=== PATIENT | female | born 1965 | race Caucasian/White ===

== ENCOUNTER → 2019-01-03 | Outpatient (CLI) | payer BC, OTHER ==
--- NOTE | 2019-01-04 08:54 | US ---
EXAMINATION TYPE: US abdomen complete DATE OF EXAM: 01/03/2019 COMPARISON: NONE CLINICAL HISTORY: R10.9 Abdominal Pain,R10.11 Rt upper quadrant pain. Pt states ABD pain EXAM MEASUREMENTS: Liver Length: 17.3 cm Gallbladder Wall: 0.2 cm CBD: 0.3 cm Spleen: 12.0 cm Right Kidney: 10.6 x 3.7 x 3.7 cm Left Kidney: 11.7 x 5.8 x 4.7 cm Pancreas: wnl, tail obscured by overlying bowel gas Liver: Limited views show no abnormality Gallbladder: wnl Evidence for sonographic Santana's sign: No CBD: wnl Spleen: wnl Right Kidney: wnl Left Kidney: wnl Upper IVC: wnl Abd Aorta: wnl The visualized liver is homogenous. The intrahepatic portion of the IVC and proximal abdominal aorta are within normal limits. There is no evidence of cholelithiasis. Common bile duct is unremarkable . The visualized portions of the pancreas are homogenous. The spleen is unremarkable. Kidneys are symmetric and free of hydronephrosis. No renal lesions are seen. IMPRESSION: No suspicious findings seen on images saved to account for patient's symptoms of right up per quadrant and diffuse abdominal pain.
== END | disposition home or self-care (01) ==
LOC: RADUSWWP 09:03
PROVIDERS: ATTEND Family Medicine
DX: K57.30 Diverticulosis of large intestine without perforation or abscess without bleeding (principal); R10.11 Right upper quadrant pain
CPT/HCPCS: 76700

== ENCOUNTER 2021-09-11 22:03 | Emergency (ER) | payer BC ==
[2021-09-11] MEDS ORDERED: SODIUM CHLORIDE 0.9% 1,000 ML IV ONE (23:37)
[2021-09-12] MEDS ORDERED: BAMLANIVIMAB (EUA) 700 MG, ETESEVIMAB (EUA) 1,400 MG in SODIUM CHLORIDE 0.9% 50 ML IVPB ONE (00:15)
[2021-09-12] MEDS ORDERED: SODIUM CHLORIDE 0.9% 50 ML IVPB ONE (00:15)
[2021-09-12 00:25] LABS: Appearance,Urine Clear (Clear); Bilirubin,Urine Negative (Negative); Blood,Urine Negative (Negative); Color,Urine Yellow; Glucose,Urine (UA) Negative (Negative); Ketones,Urine Negative (Negative); Leukocyte Esterase,Urine Negative (Negative); Nitrite,Urine Negative (Negative); Protein,Urine Negative (Negative); Specific Gravity,Urine 1.029 (1.001-1.035); Urobilinogen,Urine <2.0 mg/dL (<2.0)
[2021-09-12 00:29] VITALS: RESP 18
--- NOTE | 2021-09-12 01:47 | ED ---
Recheck HPI - General Chief Complaint: Recheck/Abnormal Lab/Rx Stated Complaint: COVID+,Wants Antibodies Time Seen by Provider: 09/11/21 22:42 Source: patient Mode of arrival: ambulatory - History of Present Illness Initial Comments: 56 year-old female patient presents to the emergency department requesting antibodies after testing positive for COVID. States that she started having symptoms about 5 days ago. She has cough, congestion, shortness of breath, fever, and bodyaches. States she did have positive rapid and PCR test for COVID. She was seen at [facility], they gave her a dose of steroids. Her physician instructed her to return to the hospital to receive monoclonal antibodies. She denies any vomiting or diarrhea. States that she did Tylenol cold and flu. Patient denies any recent rash, abdominal pain, constipation, back pain, numbness, tingling, dizziness, weakness, hematuria, dysuria, urinary urgency, urinary frequency, headache, visual changes, or any other complaints. - Related Data Home Medications Medication Instructions Recorded Confirmed Montelukast [Singulair] 10 mg PO HS 05/20/15 12/12/17 Venlafaxine HCl [Effexor XR] 75 mg PO Q2D 05/20/15 12/12/17 Ascorbic Acid [Vitamin C] 500 mg PO DAILY 12/12/17 12/12/17 Ibuprofen 800 mg PO Q6H PRN 12/12/17 12/12/17 lisinopriL [Zestril] 10 mg PO DAILY 12/12/17 12/12/17 Previous Rx's Medication Instructions Recorded Ibuprofen 800 mg PO Q6HR PRN #20 tablet 12/12/17 Orphenadrine [Norflex] 100 mg PO Q12H #7 tablet.er 12/12/17 predniSONE [Deltasone] 20 mg PO BID #10 tab 12/12/17 Allergies Allergy/AdvReac Type Severity Reaction Status Date / Time No Known Allergies Allergy Verified 12/12/17 07:19 Review of Systems ROS Statement: Those systems with pertinent positive or pertinent negative responses have been documented in the HPI. ROS Other: All systems not noted in ROS Statement are negative. Past Medical History Past Medical History: Asthma, Hypertension Additional Past Medical History / Comment(s): irregular menses, chronic neck pain History of Any Multi-Drug Resistant Organisms: None Reported Past Surgical History: Appendectomy, Orthopedic Surgery Additional Past Surgical History / Comment(s): laparoscopic cyst removed from ovary, nestor knee arthroscopies, breast reduction, breast biopsy Additional Past Anesthesia/Blood Transfusion Reaction / Comment(s): "has a hard time waking up with anesthesia" Past Psychological History: Anxiety Smoking Status: Never smoker Past Alcohol Use History: Occasional Past Drug Use History: None Reported - Past Family History Father Family Medical History: Cancer Additional Family Medical History / Comment(s): lung ca Mother Family Medical History: Hypertension Additional Family Medical History / Comment(s): cardiomyopathy General Exam General appearance: alert, in no apparent distress, other (This is a well- developed, well-nourished adult female patient in no acute distress.) Eye exam: Present: normal appearance, PERRL, EOMI. Absent: scleral icterus, conjunctival injection, periorbital swelling ENT exam: Present: normal exam, normal oropharynx, mucous membranes moist Respiratory exam: Present: normal lung sounds bilaterally. Absent: respiratory distress, wheezes, rales, rhonchi, stridor Cardiovascular Exam: Present: regular rate, normal rhythm, normal heart sounds. Absent: systolic murmur, diastolic murmur, rubs, gallop, clicks GI/Abdominal exam: Present: soft, normal bowel sounds. Absent: distended, tenderness, guarding, rebound, rigid Neurological exam: Present: alert, oriented X3, CN II-XII intact Psychiatric exam: Present: normal affect, normal mood Skin exam: Present: warm, dry, intact, normal color. Absent: rash Course Vital Signs 09/11/21 09/12/21 09/12/21 22:30 00:26 00:55 Temperature 98.2 F 97.7 F 97.4 F L Pulse Rate 81 74 53 L Respiratory 22 18 18 Rate Blood Pressure 154/92 148/90 148/91 O2 Sat by Pulse 95 96 96 Oximetry 09/12/21 02:08 Temperature 98.1 F Pulse Rate 67 Respiratory 18 Rate Blood Pressure 148/83 O2 Sat by Pulse 94 L Oximetry Medical Decision Making - Medical Decision Making 56-year-old female patient recently tested positive for COVID-19, presenting to the emergency department today requesting antibody infusion. Physical examination did reveal clear equal lung sounds. Vital signs are normal except for mildly low pulse oximetry of 95%. She did meet criteria to receive monoclonal antibodies. The infusion was discussed she did agree to receive it. She had the infusion with no complications. She'll be discharged. The primary care physician for recheck in 1-2 days. Return parameters were discussed in detail. She verbalizes understanding and agrees with this plan. My attending is Dr. Garza. - Lab Data Lab Results 09/12/21 Range/Units 00:04 Urine Color Yellow Urine Appearance Clear (Clear) Urine pH 6.0 (5.0-8.0) Ur Specific [place] 1.029 (1.001-1.035) Urine Protein Negative (Negative) Urine Glucose (UA) Negative (Negative) Urine Ketones Negative (Negative) Urine Blood Negative (Negative) Urine Nitrite Negative (Negative) Urine Bilirubin Negative (Negative) Urine Urobilinogen <2.0 (<2.0) mg/dL Ur Leukocyte Esterase Negative (Negative) Disposition Clinical Impression: COVID-19 Disposition: HOME SELF-CARE Condition: Good Instructions (If sedation given, give patient instructions): Coronavirus Disease 2019 (COVID-19) Additional Instructions: Increase fluids. Follow-up through primary care physician for recheck in 1-2 days. Return for any new, worsening, or concerning symptoms. Is patient prescribed a controlled substance at d/c from ED?: No Referrals: Rama Barr MD [Primary Care Provider] - 1-2 days Time of Disposition: 01:59
[2021-09-12 02:10] VITALS: BP 148/83; PULSE 67; TEMP 98.1
== END 2021-09-12 02:08 | disposition home or self-care (01) ==
LOC: EC 22:03
DX: U07.1 COVID-19 (principal); I10 Essential (primary) hypertension; J45.909 Unspecified asthma, uncomplicated; F41.9 Anxiety disorder, unspecified; Z79.52 Long term (current) use of systemic steroids; Z79.1 Long term (current) use of non-steroidal anti-inflammatories (NSAID); Z79.899 Other long term (current) drug therapy; Z90.721 Acquired absence of ovaries, unilateral; Z90.49 Acquired absence of other specified parts of digestive tract; Z82.49 Family history of ischemic heart disease and other diseases of the circulatory system; Z80.1 Family history of malignant neoplasm of trachea, bronchus and lung
CPT/HCPCS: 99285 ×2; 96365 ×2; 96361 ×3; 81003; J3490

== ENCOUNTER → 2022-02-26 | Outpatient (CLI) | payer BC ==
--- NOTE | 2022-02-26 11:28 | US ---
EXAMINATION TYPE: US venous doppler duplex LE LT DATE OF EXAM: 02/26/2022 10:27 AM COMPARISON: NONE CLINICAL HISTORY: I80.9 Phlebitis and thrombophlebitis. Left leg swelling. No hx DVT. Not on blood thinners. SIDE PERFORMED: Left TECHNIQUE: The lower extremity deep venous system is examined utilizing real time linear array sonog bakari with graded compression, doppler sonography and color-flow sonography. VESSELS IMAGED: Common Femoral Vein Deep Femoral Vein Greater Saphenous Vein * Femoral Vein Popliteal Vein Small Saphenous Vein * Proximal Calf Veins (* superficial vessels) Left Leg: Negative for DVT IMPRESSION: 1. Left lower extremity ultrasound negative for deep venous thrombosis.
== END | disposition home or self-care (01) ==
LOC: RADUSWWP 10:06
PROVIDERS: ATTEND Orthopaedic Surgery
DX: I80.9 Phlebitis and thrombophlebitis of unspecified site (principal); M79.89 Other specified soft tissue disorders

== ENCOUNTER → 2022-04-09 | Outpatient (CLI) | payer BC ==
--- NOTE | 2022-04-12 11:35 | MM ---
Reason for Exam: Screening (asymptomatic). Last mammogram was performed 1 year(s) and 5 month(s) ago. Patient History: Menarche at age 13. First Full-Term at age 27. Postmenopausal. Hormonal Contraceptives for 8 years from age 17 until age 25. 11/07/2000, Bilateral Reduction. Risk Values: Catherine 5 year model risk: 1.4%. NCI Lifetime model risk: 8.7%. Prior Study Comparison: 07/23/2005 Left Diagnostic Mammogram, [facility]. 01/20/2006 Left Diagnostic Mammogram, [facility]. 08/23/2006 Bilateral Diagnostic Mammogram, [facility]. Tissue Density: There are scattered fibroglandular densities. Findings: Analyzed By CAD. There is no suspicious group of microcalcifications or new suspicious mass in either breast. Chronic nodularity right breast stable. Benign calcifications noted. Benign lymph nodes left axilla. Nodule in the outer margin the right breast may be slightly increased in size relative to prior exam. Overall Assessment: Incomplete: need additional imaging evaluation, BI-RAD 0 Management: Diagnostic Mammogram of the right breast. A clinical breast exam by your physician is recommended on an annual basis and results should be correlated with mammographic findings. Electronically signed and approved by: Chinedu Giron M.D. Radiologis
== END | disposition home or self-care (01) ==
LOC: MERGE 16:20 → RADMAMWWP 16:21
PROVIDERS: ATTEND Family Medicine
DX: Z12.31 Encounter for screening mammogram for malignant neoplasm of breast (principal)
CPT/HCPCS: 77067

== ENCOUNTER → 2022-04-15 | Outpatient (CLI) | payer BC ==
--- NOTE | 2022-04-15 08:31 | MM ---
Reason for Exam: Additional evaluation requested from abnormal screening. Last screening mammogram was performed less than 1 month ago. Patient History: Menarche at age 13. First Full-Term at age 27. Postmenopausal. Hormonal Contraceptives for 8 years from age 17 until age 25. 11/07/2000, Bilateral Reduction. Risk Values: Catherine 5 year model risk: 1.4%. NCI Lifetime model risk: 8.7%. Prior Study Comparison: 05/24/2019 Bilateral MG screening mammo w CAD - 2, [facility]. 12/01/2020 Bilateral MG 3D screening mammo w/cad, [facility]. 04/09/2022 Bilateral MG screening mammo w CAD, [facility]. Tissue Density: Right: There are scattered fibroglandular densities. Findings: Analyzed By CAD. Mammogram There is a persistent small rounded density which is circumscribed in the outer aspect of right breast. Additional evaluation with ultrasound was performed. At the 7:00 position there appears to be a tiny cyst by ultrasound may correspond. Short-term follow-up is recommended. Technique: Method: Targeted. Findings: There is a 0.4 x 0.3 x 0.2 cm hypoechoic area which may have posterior wall enhancement. This appears to be a cyst but may be too small to classify as a completely simple cyst. Precautionary follow up in 6 months is recommended. Additionally, there is a tiny cyst which may be present at the 10:00 position. Follow-up ultrasound right breast in 6 months is recommended. Overall Assessment: Probably benign, BI-RAD 3 Assessment: MG work up mamm w CAD RT - Right: Probably benign, BI-RAD 3. US breast workup limited RT - Right: Probably benign, BI-RAD 3. Management: Diagnostic Mammogram of the right breast in 6 months. Diagnostic Breast Ultrasound of the right breast in 6 months. A clinical breast exam by your physician is recommended on an annual basis and results should be correlated with mammographic findings. Results were given to the patient verbally at the time of exam. Patient should continue monthly self breast exam. Negative ultrasound or negative mammogram should not preclude biopsy of suspicious palpable abnormalities. Electronically signed and approved by: Tyrel Bennett D.O. Radiologis
== END | disposition home or self-care (01) ==
LOC: RADMAMWWP 07:01
PROVIDERS: ATTEND Family Medicine
DX: R92.8 Other abnormal and inconclusive findings on diagnostic imaging of breast (principal)
CPT/HCPCS: 77065

== ENCOUNTER 2022-09-14 13:38 | Emergency (ER) | payer BC, OTHER ==
[2022-09-14 14:00] VITALS: TEMP 98
[2022-09-14] MEDS ORDERED: SODIUM CHLORIDE 0.9% 1,000 ML IV STA (17:03)
[2022-09-14] MEDS ORDERED: ONDANSETRON 4 MG/2 ML VIAL IVP STA (17:03)
[2022-09-14] MEDS ORDERED: ACETAMINOPHEN TAB 500 MG TAB PO STA (17:04)
[2022-09-14] MEDS ORDERED: METOCLOPRAMIDE 5 MG/ML 2 ML VIAL IVP STA (17:04)
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
--- NOTE | 2022-09-14 18:08 | XR ---
EXAMINATION TYPE: XR chest 2V DATE OF EXAM: 09/14/2022 COMPARISON: 09/05/2015 HISTORY: Chest pain TECHNIQUE: 2 view FINDINGS: Heart and mediastinum are normal. Lungs are clear. Diaphragm is normal. Bony thorax is inta ct. IMPRESSION: Normal chest. There is clearing of some pneumonia in the left lung compared to old exam
[2022-09-14 18:09] LABS: Basophils % (A) 1 %; Eosinophils # (A) 0.1 k/uL (0-0.7); Eosinophils % (A) 1 %; HCT 38.4 % (34.0-46.0); HGB 13.4 gm/dL (11.4-16.0); Lymphocytes # (A) 1.8 k/uL (1.0-4.8); Lymphocytes % (A) 28 %; MCH 30.4 pg (25.0-35.0); MCHC 34.8 g/dL (31.0-37.0); MCV 87.4 fL (80.0-100.0); Mean Platelet Volume 8.8; Monocytes # (A) 0.3 k/uL (0-1.0); Monocytes % (A) 5 %; Neutrophils # (A) 4.4 k/uL (1.3-7.7); Neutrophils % (A) 65 %; Platelet Count 202 k/uL (150-450); RDW 13.2 % (11.5-15.5); WBC 6.7 k/uL (3.8-10.6)
[2022-09-14 18:20] LABS: INR 0.9 (<1.2); Prothrombin Time 10.1 sec (9.0-12.0)
[2022-09-14 18:26] LABS: ALT 37 U/L (4-34); AST 22 U/L (14-36); African American GFR (CKD) >90 (>60 ml/min/1.73 sqM); Albumin 4.7 g/dL (3.5-5.0); Alkaline Phosphatase 79 U/L (38-126); Anion Gap 10 mmol/L; Blood Urea Nitrogen 17 mg/dL (7-17); Calcium 9.5 mg/dL (8.4-10.2); Carbon Dioxide 24 mmol/L (22-30); Chloride 106 mmol/L (98-107); Glucose 108 mg/dL (74-99); Magnesium 2.1 mg/dL (1.6-2.3); Non-African American GFR(CKD) >90 (>60 ml/min/1.73 sqM); Potassium 3.7 mmol/L (3.5-5.1); Sodium 140 mmol/L (137-145); Total Bilirubin 0.8 mg/dL (0.2-1.3); Total Protein 6.7 g/dL (6.3-8.2)
[2022-09-14 18:44] VITALS: BP 134/85; PULSE 54; RESP 15
== END 2022-09-14 19:41 | disposition home or self-care (01) ==
LOC: EC 13:38
DX: S06.0X0A Concussion without loss of consciousness, initial encounter (principal); R45.83 Excessive crying of child, adolescent or adult; R07.89 Other chest pain; H93.13 Tinnitus, bilateral; R51.9 Headache, unspecified; R11.0 Nausea; J45.909 Unspecified asthma, uncomplicated; I10 Essential (primary) hypertension; F41.9 Anxiety disorder, unspecified; Z79.899 Other long term (current) drug therapy; W50.1XXA Accidental kick by another person, initial encounter
CPT/HCPCS: 36415; 93005; 80053; 83735; 84484; 85025; 85610; 85730; 71046; 72125; 70450; 99284; 96374; 96375; 96361; J2765; J2405

== ENCOUNTER → 2022-10-28 | Outpatient (CLI) | payer BC ==
--- NOTE | 2022-10-28 14:31 | MM ---
Reason for Exam: Follow-up at short interval from prior study. Last screening mammogram was performed 6 month(s) ago. Patient History: Menarche at age 13. First Full-Term at age 27. Postmenopausal. Hormonal Contraceptives for 8 years from age 17 until age 25. 11/07/2000, Bilateral Reduction. Risk Values: Catherine 5 year model risk: 1.4%. NCI Lifetime model risk: 8.7%. Prior Study Comparison: 12/01/2020 Bilateral MG 3D screening mammo w/cad, [facility]. 04/09/2022 Bilateral MG screening mammo w CAD, [facility]. 04/15/2022 Right MG work up mamm w CAD RT, [facility]. Tissue Density: Right: There are scattered fibroglandular densities. Findings: Analyzed By CAD. 4 mm circumscribed nodularity redemonstrated 7:00 anterior depth right breast. The previously seen lateral asymmetric density has become less defined. No significant change from prior exams. Overall Assessment: Incomplete: need additional imaging evaluation, BI-RAD 0 Management: Diagnostic Breast Ultrasound of the right breast. Electronically signed and approved by: Sdai Posey M.D. Radiologist
--- NOTE | 2022-10-28 15:06 | USB ---
Patient History: Menarche at age 13. First Full-Term at age 27. Postmenopausal. Hormonal Contraceptives for 8 years from age 17 until age 25. 11/07/2000, Bilateral Reduction. Risk Values: Catherine 5 year model risk: 1.4%. NCI Lifetime model risk: 8.7%. Technique: Method: Targeted. Prior Study Comparison: 12/01/2020 Bilateral MG 3D screening mammo w/cad, [facility]. 04/09/2022 Bilateral MG screening mammo w CAD, [facility]. 04/15/2022 Right MG work up mamm w CAD RT, [facility]. Findings: The upper outer quadrant of the right breast, the lower outer quadrant of the right breast, the axilla of the right breast and the retroareolar of the right breast were scanned. Targeted ultrasound of the right breast lateral half 6:00 to 12:00 including the subareolar region and axilla. There is redemonstration of a 4 x 3 x 3 mm tiny cyst embedded in dense tissue at the 7:00 position, 4 cm from the nipple. No other solid or cystic lesion. No axillary lymphadenopathy. Overall Assessment: Benign, BI-RAD 2 Management: Screening Mammogram of both breasts in 6 months. 1. Patient should continue monthly self breast exams. 2. A clinical breast exam by your physician is recommended on an annual basis. 3. This exam should not preclude additional follow-up of suspicious palpable abnormalities. Results were given to the patient verbally at the time of exam. Electronically signed and approved by: Sadi Posey M.D. Radiologist
== END | disposition home or self-care (01) ==
LOC: RADUSWWP 13:45
PROVIDERS: ATTEND Family Medicine
DX: R92.8 Other abnormal and inconclusive findings on diagnostic imaging of breast (principal); Z78.0 Asymptomatic menopausal state
CPT/HCPCS: 77065

== ENCOUNTER → 2023-05-23 | Outpatient (CLI) | payer BC ==
--- NOTE | 2023-05-24 09:17 | MM ---
Reason for Exam: Screening (asymptomatic). Last mammogram was performed 1 year(s) and 1 month(s) ago. Patient History: Menarche at age 13. First Full-Term at age 27. Postmenopausal. Hormonal Contraceptives for 8 years from age 17 until age 25. 11/07/2000, Bilateral Reduction. Risk Values: Catherine 5 year model risk: 1.5%. NCI Lifetime model risk: 8.5%. Prior Study Comparison: 04/09/2022 Bilateral MG screening mammo w CAD, [facility]. 04/15/2022 Right MG work up mamm w CAD RT, [facility]. 10/28/2022 Right MG diagnostic mammo RT w CAD, [facility]. Tissue Density: There are scattered fibroglandular densities. Findings: Analyzed By CAD. Pattern appears symmetrical and stable. No significant interval change is evident. Chronic nodularity is within the anterior right breast. No suspicious groups of microcalcifications, spiculated or lobular masses, architectural distortion or other secondary signs of malignancy are mammographically apparent. Overall Assessment: Benign, BI-RAD 2 Management: Screening Mammogram of both breasts in 1 year. A negative mammogram report should not preclude additional follow up of suspicious palpable abnormalities. Patient should continue monthly self breast exam. A clinical breast exam by your physician is recommended on an annual basis and results should be correlated with mammographic findings. Electronically signed and approved by: Tyrel Bennett D.O. Radiologis
--- NOTE | 2023-05-24 19:17 | BD ---
EXAMINATION TYPE: Axial Bone Density DATE OF EXAM: 05/23/2023 CLINICAL HISTORY: 58 years old Female. ICD-10 CODE: Z780 POST GÓMEZ WITHOUT HRT Height: 65.7 in Weight: 198 lbs FRAX RISK QUESTIONS: History of Fracture in Adulthood: lt foot fx age 57; rt hand fx age 45 Secondary Osteoporosis: 3. Menopause before 45: age 41 RISK FACTORS HISTORY OF: Active: yes Postmenopausal woman: age 41 Take estrogen and/or progesterone medications: not now How long: took control previously MEDICATIONS: Additional Medications: lisinopril, asthma med, leaky bladder med, anxiety meds EXAM MEASUREMENTS: Bone mineral densitometry was performed using the [employer]. Bone mineral density as measured about the Lumbar spine is: ----- L1-L4(G/cm2): 0.993 T Score Values are as follows: ----- L1: -2.2 ----- L2: -1.4 ----- L3: -1.6 ----- L4: -1.3 ----- L1-L4: -1.6 Z Score Values are as follows: ----- L1: -1.9 ----- L2: -1.1 ----- L3: -1.4 ----- L4: -1.1 ----- L1-L4: -1.3 Bone mineral density baseline Bone mineral density about the R hip (g/cm2): 0.949 Bone mineral density about the L hip (g/cm2): 0.975 T Score values are as follows: -----R Neck: -1.4 -----L Neck: -1.1 -----R Total: -0.5 -----L Total: -0.3 Z Score values are as follows: -----R Neck: -0.7 -----L Neck: -0.4 -----R Total: -0.2 -----L Total: 0.0 Bone mineral density baseline FRAX%s: The graph provided illustrates a 12.0% chance for a major osteoporotic fx and a 0.9% chance f or the hips probability for fx in 10 years time. IMPRESSION: Osteopenia (T Score between -2.5 and -1). There is slightly increased risk of fracture and the patient may be considered for treatment. Re-Screen 2-5 years. NOTE: T-SCORE=SD OF THE YOUNG ADULT MEAN.
== END | disposition home or self-care (01) ==
LOC: RADBDWWP 12:48
PROVIDERS: ATTEND Family Medicine
DX: Z12.31 Encounter for screening mammogram for malignant neoplasm of breast (principal); M85.89 Other specified disorders of bone density and structure, multiple sites; Z78.0 Asymptomatic menopausal state
CPT/HCPCS: 77067; 77080

== ENCOUNTER → 2023-06-16 | Outpatient (CLI) | payer BC ==
[2023-06-16 17:06] LABS: Basophils # (A) 0.05 X 10*3/uL (0.00-0.10); Basophils % (A) 0.9 %; Eosinophils % (A) 1.9 %; HCT 39.5 % (37.2-46.3); HGB 13.2 d/dL (12.0-15.0); Lymphocytes # (A) 1.64 X 10*3/uL (0.90-5.00); Lymphocytes % (A) 31.1 %; MCH 30.3 pg (27.0-32.0); MCHC 33.4 d/dL (32.0-37.0); MCV 90.8 FL (80.0-97.0); Mean Platelet Volume 10.6 FL (9.5-12.2); Monocytes # (A) 0.39 X 10*3/uL (0.20-1.00); Monocytes % (A) 7.4 %; NRBC Per 100 WBC 0 X 10*3/uL (0.00-0.01); Neutrophils # (A) 3.09 X 10*3/uL (1.80-7.70); Neutrophils % (A) 58.5 %; Platelet Count 227 X 10*3/uL (140-440); RBC 4.35 X 10*6/uL (4.10-5.20); RDW 12.8 % (11.5-14.5); WBC 5.28 X 10*3/uL (4.50-10.00)
[2023-06-16 17:21] LABS: ALT 21 U/L (8-44); AST 22 U/L (13-35); Albumin 4.8 d/dL (3.8-4.9); Albumin/Globulin Ratio 2.18 Ratio (1.60-3.17); Alkaline Phosphatase 91 U/L (41-126); BUN/Creat Ratio 20.22 Ratio (12.00-20.00); Blood Urea Nitrogen 18.2 mg/dL (9.0-27.0); Calcium 9.2 mg/dL (8.7-10.3); Carbon Dioxide 24.2 mmol/L (21.6-31.8); Chloride 103 mmol/L (96-109); Chol/HDL Ratio 3.08 Ratio; Globulin 2.2 d/dL (1.6-3.3); Glucose 99 mg/dL (70-110); LDL Cholesterol,Calculated 74.1 mg/dL (0.0-131.0); Potassium 4.5 mmol/L (3.5-5.5); Sodium 140 mmol/L (135-145); Total Bilirubin 0.4 mg/dL (0.3-1.2)
== END | disposition home or self-care (01) ==
LOC: LABWHC1 08:37
PROVIDERS: ATTEND Family Medicine
DX: Z13.220 Encounter for screening for lipoid disorders (principal); Z13.29 Encounter for screening for other suspected endocrine disorder; I10 Essential (primary) hypertension
CPT/HCPCS: 36415; 80053; 80061; 84443; 85025

== ENCOUNTER → 2024-05-24 | Outpatient (CLI) | payer BC ==
--- NOTE | 2024-05-29 07:55 | MM ---
Reason for Exam: Screening (asymptomatic). Last screening mammogram was performed 12 month(s) ago. Patient History: Menarche at age 13. First Full-Term at age 27. Postmenopausal. Patient has history of breast feeding. Hormonal Contraceptives for 8 years from age 17 until age 25. 11/07/2000, Bilateral Reduction. Maternal aunt had breast cancer at or over age 50. Risk Values: Catherine 5 year model risk: 1.5%. NCI Lifetime model risk: 8.3%. Prior Study Comparison: 05/24/2019 Bilateral MG screening mammo w CAD - 2, [facility]. 12/01/2020 Bilateral MG 3D screening mammo w/cad, [facility]. 04/09/2022 Bilateral MG screening mammo w CAD, [facility]. 04/15/2022 Right MG work up mamm w CAD RT, [facility]. 10/28/2022 Right MG diagnostic mammo RT w CAD, [facility]. 05/23/2023 Bilateral MG screening mammo w CAD, [facility]. Tissue Density: There are scattered areas of fibroglandular density. Findings: Analyzed By CAD. There is no suspicious group of microcalcifications or new suspicious mass in either breast. Overall Assessment: Negative, BI-RAD 1 Management: Screening Mammogram of both breasts in 1 year. . Patient should continue monthly self-breast exams. A clinical breast exam by your physician is recommended on an annual basis. This exam should not preclude additional follow-up of suspicious palpable abnormalities. Note on Catherine scores and lifetime risk: 1. A Catherine score greater than 3% is considered moderate risk. If this is the case, consider specialist referral to assess eligibility for a risk reducing agent. 2. If overall lifetime risk for the development of breast cancer is 20% or higher, the patient may qualify for future screening with alternating mammogram and breast MRI. Electronically signed and approved by: Filiberto Ayala M.D. Radiologis
== END | disposition home or self-care (01) ==
LOC: RADMAMWWP 08:08
PROVIDERS: ATTEND Family Medicine
DX: Z12.31 Encounter for screening mammogram for malignant neoplasm of breast (principal); Z78.0 Asymptomatic menopausal state; Z80.3 Family history of malignant neoplasm of breast
CPT/HCPCS: 77067

== ENCOUNTER → 2025-05-27 | Outpatient (CLI) | payer BC ==
--- NOTE | 2025-05-27 08:01 | MM ---
Reason for Exam: Screening (asymptomatic). Last screening mammogram was performed 12 month(s) ago. Patient History: Menarche at age 13. First Full-Term at age 27. Postmenopausal. Patient has history of breast feeding. Hormonal Contraceptives for 8 years from age 17 until age 25. 11/07/2000, Bilateral Reduction. Maternal aunt had breast cancer at or over age 50. Risk Values: Catherine 5 year model risk: 1.6%. NCI Lifetime model risk: 8.1%. Prior Study Comparison: 10/28/2022 Right MG diagnostic mammo RT w CAD, [facility]. 05/23/2023 Bilateral MG screening mammo w CAD, [facility]. 05/24/2024 Bilateral MG screening mammo w CAD, [facility]. Tissue Density: The breasts are almost entirely fatty. Findings: Analyzed By CAD. Right breast: There is no suspicious group of microcalcifications or new suspicious mass. Left breast: There is no suspicious group of microcalcifications or new suspicious mass. Overall Assessment: Negative, BI-RAD 1 Management: Screening Mammogram of both breasts in [address] [facility] will attempt to contact patient to return for supplemental views and ultrasound if indicated. Patient should continue monthly self-breast exams. A clinical breast exam by your physician is recommended on an annual basis. This exam should not preclude additional follow-up of suspicious palpable abnormalities. Note on Catherine scores and lifetime risk: 1. A Catherine score greater than 3% is considered moderate risk. If this is the case, consider specialist referral to assess eligibility for a risk reducing agent. 2. If overall lifetime risk for the development of breast cancer is 20% or higher, the patient may qualify for future screening with alternating mammogram and breast MRI. [facility], , 05/27/2025 7:59 AM. Electronically signed and approved by: Mason Aguayo DO
== END | disposition home or self-care (01) ==
LOC: RADMAMWWP 07:00
PROVIDERS: ATTEND Family Medicine
DX: Z12.31 Encounter for screening mammogram for malignant neoplasm of breast (principal); R92.313 Mammographic fatty tissue density, bilateral breasts; Z78.0 Asymptomatic menopausal state; Z80.3 Family history of malignant neoplasm of breast; Z92.0 Personal history of contraception
CPT/HCPCS: 77063; 77067